=== PATIENT | male | born 1965 | race Hispanic/Latino ===

== ENCOUNTER 2022-11-06 22:57 | Emergency (ER) | payer OTHER ==
[~2022-11-06] VITALS: Ht 162.6 cm; Wt 81.2 kg
[2022-11-07] MEDS ORDERED: BENZONATATE 100 MG CAPSULE PO ONE (03:36)
[2022-11-07] MEDS ORDERED: BENZONATATE 100 MG CAPSULE PO SCH (04:00)
[2022-11-07 07:30] VITALS: BP 130/90
[2022-11-07] MEDS ORDERED: GUAIFENESIN-CODEINE 5 ML SYRUP PO ONE (08:00)
[2022-11-07 08:25] LABS: BASOPHILS % (AUTO) 0.6 % (0.0-5.0); EOSINOPHILS % (AUTO) 4.2 % (0.0-8.0); HEMATOCRIT 41.5 % (42-54); MEAN CORPUSCULAR HEMOGLOBIN 28.2 pg (27.0-33.0); MEAN CORPUSCULAR HGB CONC 34.2 g/dL (32.0-36.0); MEAN CORPUSCULAR VOLUME 82.5 fL (79-99); MONOCYTES % (AUTO) 10.2 % (3.0-13.0); NEUTROPHILS % (AUTO) 60.8 % (40.0-77.0); PLATELET COUNT (AUTO) 300 K/uL (130-400); RED BLOOD CELL COUNT(AUTO) 5.03 MIL/uL (4.50-6.20); RED CELL DISTRIBUTION WIDTH 12.6 % (11.0-15.5); WHITE BLOOD COUNT (AUTO) 12.1 K/uL (4.8-10.8)
[2022-11-07] MEDS ORDERED: GUAI118S13 PO (08:49)
[2022-11-07] MEDS ORDERED: ACET-66 PO (08:49)
[2022-11-07] MEDS ORDERED: BENZ1LOZ81 MM (08:49)
[2022-11-07] MEDS ORDERED: AZIT500T4 PO (08:49)
[2022-11-07 08:54] LABS: ALBUMIN 3.6 g/dL (3.5-5.0); POTASSIUM 3.9 mmol/L (3.5-5.1); TOTAL PROTEIN, SERUM 7.8 g/dL (6.0-8.3)
[2022-11-07] MEDS ORDERED: KETOROLAC 15MG/ML VIAL (15MG/ML) IV ONE (09:00)
[2022-11-07] MEDS ORDERED: AZITHROMYCIN 250 MG TABLET PO ONE (09:00)
[2022-11-07] MEDS ORDERED: CEFTRIAXONE 1G VIAL IVP ONE (09:00)
== END 2022-11-07 09:30 | disposition home or self-care (01) ==
LOC: EDH 22:57
DX: J40 Bronchitis, not specified as acute or chronic (principal); Z20.822 Contact with and (suspected) exposure to COVID-19; I10 Essential (primary) hypertension; E78.5 Hyperlipidemia, unspecified
CPT/HCPCS: 99284; 87635; 80053; 85025; 87880; 87804 ×2; 36415; 96374; 71045; 96375; C9803; J0696; J1885